=== PATIENT | female | born 1975 ===

== ENCOUNTER 2018-08-05 19:23 | Emergency (ER) | payer SELFPAY ==
[2018-08-05 19:38] VITALS: O2SAT 100
--- NOTE | 2018-08-05 20:14 | C.PDOC ---
History Of Present Illness 42 y/o female comes in for evaluation of right upper toothache, developing since this morning. Associated with gum swelling. She denies any drooling, fever, trismus, SOB, dyspnea, or recent dental work. Ambulate to ED, not in resp. distress. Time Seen by Provider: 08/05/18 19:56 Chief Complaint (Nursing): Dental Pain History Per: Patient History/Exam Limitations: no limitations Onset/Duration Of Symptoms: Hrs Current Symptoms Are (Timing): Still Present Past Medical History Reviewed: Historical Data, Nursing Documentation, Vital Signs Vital Signs: Last Vital Signs Temp 98.8 F 08/05/18 19:33 Pulse 93 H 08/05/18 19:33 Resp 18 08/05/18 19:33 BP 149/86 08/05/18 19:33 Pulse Ox 100 08/05/18 19:33 - Medical History PMH: No Chronic Diseases Surgical History: Family History: States: No Known Family Hx - Social History Hx Alcohol Use: No Hx Substance Use: No - Immunization History Hx Tetanus Toxoid Vaccination: No Hx Influenza Vaccination: No Hx Pneumococcal Vaccination: No Review Of Systems Constitutional: Negative for: Fever, Chills ENT: Positive for: Other (+ Toothache, + gum swelling, no drooling or trismus) Respiratory: Negative for: Shortness of Breath Gastrointestinal: Negative for: Nausea, Vomiting Neurological: Negative for: Headache, Dizziness Physical Exam - Physical Exam Appears: Well, Non-toxic, No Acute Distress Skin: Normal Color, Warm, Dry, No Rash Head: Normacephalic Eye(s): bilateral: PERRL Ear(s): Bilateral: Normal Nose: No Flaring, No Discharge Oral Mucosa: Moist, No Drooling Gingiva: Swelling, Tender, Abscess (small/early #8, no flactulance.) Throat: Normal Neck: Normal ROM, Trachea Midline, Supple Lymphatic: No Adenopathy (cervical) Cardiovascular: Rhythm Regular, No Murmur, No JVD Respiratory: No Decreased Breath Sounds, No Accessory Muscle Use, No Stridor, No Wheezing Extremity: Normal ROM Neurological/Psych: Oriented x3, Normal Speech ED Course And Treatment O2 Sat by Pulse Oximetry: 100 (RA) Pulse Ox Interpretation: Normal Progress Note: On re-eval, pt is afebrile hemodynamicaly stable. Non-toxic, tolerate Po well in ED. PulsEOx 100% RA. ENT: early tooth abscess #8, no flactulance. uvula midline, no edema, no drooling or trismus. neck; Supple, (-) meningeal sign. Lungs: CTA B/L, BS equal B/L. Neurologicaly intact. Pt was asked for preg test, refused " my menstrual period just complited". Pt advised on course of ds. ref. to f/u with DEntist in 1 -2 days for re-eavl. return to Ed if any worsening or new changes. Disposition Counseled Patient/Family Regarding: Diagnosis, Need For Followup, Rx Given - Disposition Referrals: [facility] [Provider Group] [facility] [Provider Group] Disposition: HOME/ ROUTINE Disposition Time: 20:15 Condition: STABLE Additional Instructions: Warm salty water tooth baths twice daily Take medication as prescribed Follow up with Dentist in 1-2 days for re-evaluation. return to ED if any worsening or new changes. Prescriptions: Clindamycin [Cleocin] 300 mg PO Q6 #28 cap traMADol [Ultram] 50 mg PO TID #7 tab Instructions: Tooth Abscess (DC) Forms: [employer] (Nauruan) - Clinical Impression Clinical Impression: Dental abscess - PA / TECHNICAL SERVICES LIBRARIAN / Resident Statement MD/DO has reviewed & agrees with the documentation as recorded. - Scribe Statement The provider has reviewed the documentation as recorded by the Scribe (Nithya Vo) All medical record entries made by the Scribe were at my direction and personally dictated by me. I have reviewed the chart and agree that the record accurately reflects my personal performance of the history, physical exam, medical decision making, and the department course for this patient. I have also personally directed, reviewed, and agree with the discharge instructions and disposition.
[2018-08-05 20:22] VITALS: BP 142/73; PULSE 71; RESP 17; TEMP 97.6
== END 2018-08-05 20:22 | disposition home or self-care (01) ==
LOC: C.ER 19:23
DX: K04.7 Periapical abscess without sinus (principal)